=== PATIENT | female | born 1990 | race Caucasian/White ===

== ENCOUNTER 2025-03-04 04:07 | Emergency (ER) | payer MEDICAID, SELFPAY ==
--- NOTE | ~2025-03-04 | CT_ITS ---
CLINICAL HISTORY: diarrhea, severe R sided pain CT abdomen and pelvis with contrast Comparison: CT - CT ABDOMEN PELVIS W IV CON - 03/04/25 05:34 EST Findings: The lung bases are clear. Unremarkable gallbladder and solid organs. No urolithiasis. Multiple fluid-filled nondilated small bowel loops are noted throughout the lower abdomen and pelvis suggesting a nonspecific enteritis. No bowel obstruction is noted. Pelvic contents unremarkable. Normal appendix. No acute fracture. IMPRESSION: Multiple fluid-filled nondilated small bowel loops are noted throughout the lower abdomen and pelvis suggesting a nonspecific enteritis. No bowel obstruction is noted. This document has been electronically signed by: Donnell Milton MD on 03/04/2025 06:38:13
[2025-03-04 04:15] VITALS: BP 122/68; PULSE 88; RESP 18; TEMP 36.6; O2SAT 100; BMI 21.6
[2025-03-04] MEDS: Lactated Ringers 1,000 ML 999 ML IV ×2 (04:25→06:34)
--- NOTE | 2025-03-04 04:28 | ED.NAVMDI ---
HPI - Nausea/Vomiting/Diarrhea General Chief complaint: Abdominal Pain Stated complaint: Nausea Vomiting Diarrhea Time Seen by Provider: 03/04/25 04:11 Source: patient and old records reviewed Mode of arrival: ambulatory Limitations: no limitations History of Present Illness ED Provider: SUZAN DAVIS Narrative: 34-year-old female with past medical history of prior but otherwise states she has no medical history. She reports about 24 hours of abdominal pain with abrupt onset nausea vomiting diarrhea. She denies any fevers. She states she has not traveled or had any sick contacts. She blames this after eating air fried broccoli, cauliflower, and carrots. She denies any GI bleed symptoms. She has not been on any antibiotics recently. She has not been able to eat or drink anything. The pain is in the epigastric area and not the right lower quadrant she denies any urinary symptoms MD elicited complaint: nausea, vomiting, diarrhea and abdominal pain Onset (ago): hour(s) (24) Description of vomiting: watery Description of diarrhea: watery Associated nausea: Yes Associated abdominal pain: Yes Location of pain: epigastric Radiation: diffuse Pain consistency: constant Severity: severe Quality: stabbing and aching Exacerbating factors: eating Relieving factors: none Context: possible food poisoning Associated symptoms: loss of appetite, malaise, nausea/vomiting and weakness Related Data Previous Rx's ?Medication ?Instructions ?Recorded ondansetron 4 mg disintegrating 4 mg PO Q8H PRN nausea and 03/04/25 tablet vomiting #20 tabs Allergies Allergy/AdvReac Type Severity Reaction Status Date / Time No Known Allergies Allergy Verified 03/04/25 04:17 Review of Systems Review of Systems: Constitutional : No Weight loss, No Fever, No Chills ENT/Mouth : No sore throat, No Rhinorrhea Eyes: No Swelling, No Redness Cardiovascular : No Chest Pain, No SOB, NoEdema Respiratory : No Cough, No Sputum, No Wheezing Gastrointestinal : Positive Nausea, Positive Vomiting, positive Diarrhea, positive abdominal Pain, No Hematochezia, No Melena Genitourinary : No Dysuria, No Urinary Frequency, No Hematuria, No Urgency Musculoskeletal : No joint pain, No Myalgias, No Joint Swelling Skin : No Skin Lesions, No rash Neuro : No Weakness, No Numbness, No Dizziness, No Headache All other systems reviewed and are negative. Gastrointestinal: Gastrointestinal: Reports nausea PMFSH Past Medical History Attestation statement: The following information was validated with the patient. Medical History No pertinent past medical history Surgical History History of 3 sections Social History Social History (Updated 03/04/25 @ 04:32 by Nancy De La Torre DO) Patient Tobacco Use Status: Tobacco use Unknown Smoked in Last 30 Days: No Use of substances other than those prescribed or required for medical reasons: Yes Substance Use Type: Marijuana Advance Directives: No Physical Exam Vital Signs: Vital Signs: Last Vital Signs Temp 97.8 F 03/04/25 04:15 Pulse 71 03/04/25 06:59 Resp 18 03/04/25 06:29 BP 104/66 03/04/25 06:59 Pulse Ox 98 03/04/25 06:29 O2 Del Method Room Air 03/04/25 06:29 BMI result Body Mass Index 21.6 Appearance: Alert. Oriented X3. No acute distress. Eyes: Pupils equal, round and reactive to light. ENT: Pharynx dry mucous membrane Neck: Normal inspection. Neck supple. CVS: Normal heart rate and rhythm. Pulses normal. Respiratory: No respiratory distress. Breath sounds normal. Abdomen: Soft and tenderness to palpation in the epigastric region, no rebound, no guarding, abdomen is soft Skin: Skin warm and dry. pale skin color. Normal skin turgor. Extremities: No lower extremity edema. Neuro: Oriented X 3. No motor deficit. No sensory deficit. CN2-12 intact Course Course Course Narrative: 6:09 AM 03/04/2025 (SUZAN GARCÍA): Signed out to Dr. Bocanegra pending p.o. challenge IV Compazine ordered patient will be given 50 mg IV Benadryl given akathisia associated with IV Compazine Reevaluation(s) Reevaluation #1: 8:02 AM 03/04/2025 (Dr. Poncho Bocanegra): Patient re-evaluated, tolerated p.o. manjinder liz, ready for discharge Medications Administered Discontinued Medications Generic Name Dose Route Start Last Admin Trade Name Freq PRN Reason Stop Dose Admin Diphenhydramine HCl 50 mg 03/04/25 06:37 03/04/25 06:38 Diphenhydramine Hcl 50 Mg/Ml Vial IVPUSH 03/04/25 06:38 50 mg ONCE ONE Administration Lactated Ringer's 1,000 mls @ 999 mls/hr 03/04/25 04:19 03/04/25 05:35 Lr IV 03/04/25 05:19 Infused .Q1H1M ONE Infusion Lactated Ringer's 1,000 mls @ 999 mls/hr 03/04/25 06:30 03/04/25 07:25 Lr IV 03/04/25 07:30 Infused .Q1H1M ONE Infusion Iohexol 85 ml 03/04/25 05:59 03/04/25 06:00 Iohexol 350 Mg/Ml 100 Ml Infus..Btl IV 03/04/25 06:00 85 ml ONCE ONE Administration Ondansetron HCl 4 mg 03/04/25 04:19 03/04/25 04:29 Ondansetron Hcl 4 Mg/2 Ml Vial IVPUSH 03/04/25 04:20 4 mg ONCE ONE Administration Prochlorperazine Edisylate 10 mg 03/04/25 06:15 03/04/25 06:23 Prochlorperazine Edisylate 10 Mg/2 Ml Vial IVPUSH 03/04/25 06:16 10 mg ONCE ONE Administration Medical Decision Making Medical Decision Making [facility] Narrative: 34-year-old female with past medical history of section who presents with complaint of almost 24 hours of abdominal pain, nausea, vomiting, diarrhea. She has no GI bleed symptoms or fevers. She denies any risk factors such as travel, sick contacts, antibiotic use. She states she became sick after eating air fried vegetables at home. At this time we will obtain basic labs, hydrate x2 L, give IV morphine for pain, give IV Zofran and reassess. If she has any localizing symptoms I am going to consider imaging. Differential Diagnosis Differential Diagnoses: The differential diagnosis associated with the presentation includes pancreatitis, gastritis, viral syndrome, food toxicity Admission/Observation Consideration of admission/observation: Escalation of care including admission/observation considered if she is able to tolerate p.o. and her imaging is negative I will DC home with supportive care and ODT Zofran Lab Data [facility] Lab Attestation statement: I reviewed the patient's lab results. labs reassuring has mild elevated WBC count but that likely goes along with vomiting 03/04/25 04:25 03/04/25 04:25 Labs: Lab Results 03/04/25 03/04/25 Range/Units 04:25 06:10 WBC 14.2 H (4.8-10.8) X10*3/uL RBC 4.44 (4.20-5.50) X10*6/uL Hgb 13.9 (12.0-16.0) g/dl Hct 41.5 (37.0-47.0) % MCV 93.5 (80.0-98.0) fL MCH 31.3 (27.0-33.0) pg MCHC 33.5 (31.0-35.0) g/dl RDW 13.2 (11.0-16.0) % Plt Count 225 (160-400) X10*3/uL MPV 10.3 (9.4-12.3) fL Immature Gran % (Auto) 0.4 (0.0-0.4) % Neut % (Auto) 90.5 H (45-73) % Lymph % (Auto) 5.0 L (20-40) % [place] % (Auto) 3.8 (2-11) % Eos % (Auto) 0.1 (0-4) % Baso % (Auto) 0.2 (0-2) % Lymph # (Auto) 0.7 L (1.2-4.9) X10*3/uL [place] # (Auto) 0.5 (0.1-1.2) X10*3/uL Eos # (Auto) 0.0 (0.0-0.4) X10*3/uL Baso # (Auto) 0.0 (0.0-0.2) X10*3/uL Abs Immat Gran (auto) 0.06 H (0.00-0.03) X10*3/uL Absolute Neuts (auto) 12.9 H (2.0-8.3) x10*3/uL Absolute Nucleated RBC 0.000 (0.0-0.012) X10*3/uL Nucleated RBC % (auto) 0.0 (0.0-0.2) /100WBC Smear Tech's Comments VERIFIED Sodium 142 (135-145) mmol/L Potassium 3.7 (3.3-5.1) mmol/L Chloride 107 (96-108) mmol/L Carbon Dioxide 23 (22-29) mmol/L Anion Gap 16 (12-20) BUN 12 (9-16) mg/dL Creatinine 0.75 (0.5-1.4) mg/dL Estim Creat Clear Calc 93.2 Estimated GFR > 60 Random Glucose 115 (60-115) mg/dL Calcium 9.5 (8.4-10.2) mg/dL Magnesium 1.8 (1.6-2.6) mg/dL Total Bilirubin 0.6 (0.0-1.0) mg/dL Direct Bilirubin 0.2 (0.0-0.5) mg/dL AST 25 (5-31) U/L ALT 10 (0-31) U/L Alkaline Phosphatase 69 (39-117) U/L Total Protein 7.6 (6.5-8.0) g/dL Albumin 4.7 (3.5-5.0) g/dL Lipase 14 (8-78) U/L Beta HCG, Quant < 2 mIU/mL Urine Color Yellow Urine Appearance Clear Urine pH 5.0 (5.0-9.0) Ur Specific [place] >= 1.030 H (1.005-1.025) Urine Protein Negative (Neg-Trace) mg/dL Urine Glucose (UA) Negative (Negative) mg/dL Urine Ketones 40 (Negative) mg/dL Urine Blood Moderate (2+) H (Negative) Urine Nitrite Negative (Negative) Ur Leukocyte Esterase Negative (Negative) Urine RBC 0-2 (0-2) /HPF Urine WBC 0-5 (0-5) /HPF Ur Squamous Epith Cells 0-2 (0-2) /HPF Urine Bacteria None Seen (None Seen) Hyaline Casts 0-2 (0-2) /LPF Influenza Type A (PCR) NEGATIVE (Negative) Influenza Type B (PCR) NEGATIVE (Negative) RSV RNA Qual (PCR) NEGATIVE (Negative) SARS-CoV-2 RNA (RT-PCR) NEGATIVE (Negative) Independent Interpretation I performed an independent interpretation of an: CT Scan (Enteritis) Radiology Impression Discussion of test interpretation with radiology: I have reviewed the radiologist's reading. External Record Review External record reviewed: Outpatient record Prescription Management I considered prescription management with: Other Discharge Plan Discharge Clinical Impression: Nausea & vomiting, Diarrhea, Acute dehydration Patient Disposition: Home, Self-Care Instructions: Dehydration (ED), Acute Nausea and Vomiting (ED), Acute Diarrhea (ED) Additional Instructions: rest and stay hydrated eat a bland diet for 48 hours then advance slowly - bananas, rice, applesauce, and toast return for worsening pain, fevers > 100.4, inability to eat or drink or any other concerns Please take it easy the next few days Findings: The lung bases are clear. Unremarkable gallbladder and solid organs. No urolithiasis. Multiple fluid-filled nondilated small bowel loops are noted throughout the lower abdomen and pelvis suggesting a nonspecific enteritis. No bowel obstruction is noted. Pelvic contents unremarkable. Normal appendix. No acute fracture. IMPRESSION: Multiple fluid-filled nondilated small bowel loops are noted throughout the lower abdomen and pelvis suggesting a nonspecific enteritis. No bowel obstruction is noted. Prescriptions: New ondansetron 4 mg tablet,disintegrating 4 mg PO Q8H PRN (Reason: nausea and vomiting) Qty: 20 0RF Stand Alone Forms: Work/School Release Print Language: Frisian
[2025-03-04 04:30] LABS: Hematocrit 41.5 % (37.0-47.0); Hemoglobin 13.9 g/dl (12.0-16.0); Imm Gran Abs Auto 0.06 X10*3/uL (0.00-0.03); Imm Gran Pct Auto 0.4 % (0.0-0.4); Lymphocytes Absolute Auto 0.7 X10*3/uL (1.2-4.9); Mean Corpuscular HGB Conc 33.5 g/dl (31.0-35.0); Mean Corpuscular Hemoglobin 31.3 pg (27.0-33.0); Mean Corpuscular Volume 93.5 fL (80.0-98.0); NRBC Abs Auto 0.000 X10*3/uL (0.0-0.012); NRBC Pct Auto 0.0 /100WBC (0.0-0.2); Platelet Count 225 X10*3/uL (160-400); Red Blood Count 4.44 X10*6/uL (4.20-5.50); SCAN SMEAR FLAG 1; White Blood Count 14.2 X10*3/uL (4.8-10.8)
--- OUTSIDE RECORDS SUMMARY | 2025-03-04 04:41 | XMS_ITS | Clinical Summary ---
Author Organization [facility] Address [address] [place] [address] Phone Care Team Providers Care Press Tender Long Goods Name Role Phone Physician, No Pcp Primary Care Provider Unavaila ble Allergies No known active allergies Social History Tobacco Use Types Packs/Day Years Used Date Smoking Tobacco: Never Assessed Comments Unknown Sex and Gender Information Value Date Recorded Sex Assigned at Female 02/20/2024 12:38 PM EST Legal Sex Female 10:57 AM EST Gender Identity Female 02/20/2024 12:38 PM EST Sexual Orientation Not on file Obstetrics History Last Filed Vital Signs Vital Sign Reading Time Taken Comments Blood Pressure 111/78 02/20/2024 11:30 AM EST Pulse 74 02/20/2024 11:30 AM EST Temperature 36.8 C (98.2 F) 02/20/2024 11:30 AM EST Respiratory Rate 16 02/20/2024 11:30 AM EST Oxygen Saturation 100% 02/20/2024 11:30 AM EST Inhaled Oxygen Concentration - - Weight 65.3 kg (144 lb) 02/20/2024 11:30 AM EST Height 165.1 cm (5' 5 ) 02/20/2024 11:30 AM EST Body Mass Index 23.96 02/20/2024 11:30 AM EST Plan of Treatment Health Maintenance Due Date Last Done Comments DTaP,Tdap,and Td Vaccines (1 - Tdap) 2007 Hepatitis B Vaccines (1 of 3 - 19+ 3-dose series) 2007 Cervical Cancer Screening: P ap Smear 2009 HPV Vaccines (1 - 3-dose SCD M series) 2015 HIV Screening 02/20/2024 Hepatitis C Screening 02/20/2024 Social Influencers of Health Screening 02/20/2024 Depression Screening 04/07/2024 COVID-19 Vaccine (1 - 2024-2 6 season) 2024 Influenza Vaccine (#1) 2024 RSV Immunization Adult Patie nts (1 - 1-dose 75+ series) 2063 HIB Vaccines Aged Out No longer eligi ble based on patient's age to complete this topic Hepatitis A Vaccines Aged Out No long er eligible based on patient's age to complete this topic IPV Vaccines Aged Out No longer eligi ble based on patient's age to complete this topic MMR Vaccines Aged Out No longer eligi ble based on patient's age to complete this topic Meningococcal ACWY Vaccine Aged Out N o longer eligible based on patient's age to complete this topic Meningococcal B Vaccine Aged Out No l onger eligible based on patient's age to complete this topic Pneumococcal Vaccine: Pediat rics (0 to 5 Years) and At-Risk Patients (6 to 49 Years) Aged Out No longer eligible b ased on patient's age to complete this topic RSV Immunization Patients Un raya 20 months Aged Out No longer eligible b ased on patient's age to complete this topic Varicella Vaccines Aged Out No longer eligible based on patient's age to complete this topic Insurance MEDICAID - [place] Care Teams Press Tender Long Goods Relationship Specialty Start Date End Date Physician, No Pcp PCP - General 02/20/24
--- OUTSIDE RECORDS SUMMARY | 2025-03-04 04:41 | XMS_ITS | Clinical Summary ---
Author Organization [employer] Address [address] [place] [address] Care Team Providers Care Railroad Repairer Name Role Phone Unavailable Primary Care Provider Unavailabl e Social History Tobacco Use Types Packs/Day Years Used Date Smoking Tobacco: Never Assessed Comments Unknown Sex and Gender Information Value Date Recorded Sex Assigned at Not on file Legal Sex Female 9:28 PM EDT Gender Identity Not on file Sexual Orientation Not on file Plan of Treatment Health Maintenance Due Date Last Done Comments Depression Screening 1988 HIV Screening 1988 SDOH Screening 1988 Disability Screening 1988 Alcohol/Substance Use Screening 2000 Tobacco Screening 2000 Family Planning (PISQ) 2003 HPV Vaccines (1 - 3-dose series) 2003 Hepatitis C Screening 2006 DTaP/Tdap/Td Vaccines (1 - Tdap) 2007 Hepatitis B Vaccines (1 of 3 - 19+ 3-dose series) 2007 Pap Smear 2009 Cervical Cancer Screening 2018 HPV/Cotest 2018 COVID-19 Vaccine (1 - 2024-2 6 season) 2024 Influenza Vaccine (#1) 2024 Zoster Vaccines (1 of 2) 2038 RSV Patients and Pa tients Aged 60 years or older (1 - 1-dose 75+ series) 2063 HIB [...] patient's age to complete this topic Meningococcal Vaccine Aged Out No mallory delroy eligible based on patient's age to complete this topic Pneumococcal Vaccine: Pediat rics (0 to 5 Years) and At-Risk Patients (6 to 49) Years Aged Out No longer eligible b ased on patient's age to complete this topic RSV under 20 months Aged Out No longe r eligible based on patient's age to complete this topic Rotavirus Vaccines Aged Out No longer eligible based on patient's age to complete this topic
[2025-03-04 04:49] LABS: MANUAL DIFF FLAG SCAN
[2025-03-04 04:50] LABS: Alanine Aminotransferase 10 U/L (0-31); Albumin Level 4.7 g/dL (3.5-5.0); Alkaline Phosphatase 69 U/L (39-117); Anion Gap 16 (12-20); Aspartate Amino Transferase 25 U/L (5-31); Blood Urea Nitrogen 12 mg/dL (9-16); Calcium 9.5 mg/dL (8.4-10.2); Carbon Dioxide 23 mmol/L (22-29); Chloride 107 mmol/L (96-108); Creatinine Clr Calc Pharmacy 93.2; Estimated Glomerular Filt Rate > 60; Lipase 14 U/L (8-78); Magnesium 1.8 mg/dL (1.6-2.6); Potassium 3.7 mmol/L (3.3-5.1); Sodium 142 mmol/L (135-145); Total Protein 7.6 g/dL (6.5-8.0)
[2025-03-04 05:17] LABS: Resp Syncy Virus RNA Qual PCR NEGATIVE (Negative); SARS COV2 PCR INHOUSE NEGATIVE (Negative)
[2025-03-04] MEDS: iohexoL 350 MG/ML 100 ML INFUS..BTL 85 ML IV (06:00)
[2025-03-04 06:19] LABS: Appearance Urine Clear; Glucose Urine UA Negative (Negative); PH 5.0 (5.0-9.0); Specific Gravity - Urine >= 1.030 (1.005-1.025); UMIC TRIGGER UACC YES
[2025-03-04 06:29] VITALS: BP 96/52; PULSE 76; RESP 18; O2SAT 98
--- NOTE | 2025-03-04 06:47 | PC.NURSE ---
pt reporting feeling very unwell after IV compazine, aware. pt medicated per JUN.
[2025-03-04 06:59] VITALS: BP 104/66; PULSE 71
--- NOTE | 2025-03-04 07:02 | PC.NURSE ---
pt resting comfortably at this time. no apparent distress, call bedolla w/in reach
--- NOTE | 2025-03-04 07:13 | PC.NURSE ---
pt is asleep but easily arousable. her LR is completed, she has pale but warm dry skin and a strong and regular radial pulse. she is not a fall risk, suction is at bedsid, she has no need for 02. awaiting md reeval.
--- NOTE | 2025-03-04 08:25 | PC.NURSE ---
pt was reevaluated by md negrete. plan is for d/c, she had benadryl and compazine 2 hours ago. pt reports she feels better but she drove to [place] and has no ride, we will wait for d/c.
[2025-03-04 09:24] VITALS: BP 110/65; PULSE 78; RESP 16; TEMP 36.8; O2SAT 98
== END 2025-03-04 09:27 | disposition home or self-care (01) ==
PROVIDERS: Emergency Medicine; Emergency Provider Emergency Medicine; PCP Dentist General Practice
DX: E86.0 Dehydration (principal); R11.2 Nausea with vomiting, unspecified; Z79.899 Other long term (current) drug therapy; Z03.818 Encounter for observation for suspected exposure to other biological agents ruled out
CPT/HCPCS: 74177; 80048; 80076; 81001; 83690; 83735; 84702; 85025; 87637; 96361; 96374; 96375; 99284; 99285; J0737; J1200; J2405; J7120; Q9967

== ENCOUNTER → 2025-03-04 04:56 | Outpatient (BNV) | payer MEDICAID, SELFPAY | PROVIDERS: Emergency Provider Emergency Medicine; PCP Dentist General Practice; Visit Provider Radiology Diagnostic Radiology | DX: R19.7 Diarrhea, unspecified (principal); R10.9 Unspecified abdominal pain | CPT/HCPCS: 74177 ==